=== PATIENT | female | born 1980 | race Caucasian/White ===

== ENCOUNTER → 2021-02-20 03:53 | Outpatient (CLI) | payer OTHER, SELFPAY ==
[2021-02-20 18:30] LABS: SARS-CoV-2 RNA PCR Negative
== END ==
PROVIDERS: PCP Internal Medicine; Visit Provider Internal Medicine Critical Care Medicine
DX: Z01.812 Encounter for preprocedural laboratory examination (principal); Z20.822 Contact with and (suspected) exposure to COVID-19
CPT/HCPCS: C9803; U0003; U0005

== ENCOUNTER → 2021-02-23 07:37 | Outpatient (CLI) | payer OTHER, SELFPAY ==
--- NOTE | 2021-03-20 00:33 | WPDSLEEPSTUD ---
Sleep Study Date of Study: 02/23/21 Ordering Provider: Kings Vieira MD Interpreting Physician: Thelma Mustafa MD Sleep Study Type: Polysomnogram Height: 1.65 m Weight: 104.326 kg Body Mass Index: 38.2 Neck Circumference (inches): 15 [place]: 10 Reason for Sleep Study Hypersomnia Sleep History Misty Lemus is a 41 year old woman with complaints of constant feeling of being tired and exhaustion. She does not wake up feeling short of breath. Occasionally she snores loudly enough that others complain. She rarely has trouble sleeping with a cold. She does not wake up gasping for breath at night. She sweats excessively at night frequently. She occasionally notices her heart pounding irregularly at night. She frequently falls asleep in the day, never involuntarily and never while driving. She does not have loss of muscle tone with strong emotion. She frequently has daytime problems due to excessive sleepiness. She does not feel paralyzed on waking or falling asleep. She occasionally has vivid dream like scenes on waking or falling asleep. She is never afraid to go asleep. She does not have nightmares. She occasionally has racing thoughts, feelings of sadness or depression. She constantly has anxiety. She frequently has muscular tension. She occasionally notices parts of her body jerking. She denies kicking at night, She occasionally has crawling and achy feelings in her legs and occasional leg pain at night. She does not have morning jaw pain. She occasionally clenches her teeth at night. She constantly is bothered by pain in the day, occasionally wakes wih t pain at night. She frequently wakes with feeling stiff in the morning and wakes with sore achy muscles. She has fatigue, memory problems, concentration difficulties. Normal bedtime is between 11:00 pm and 1:00 am. She sometimes falls asleep faster, and at other times it may take longer. She wakes between 1-2 times at night to urinate, get a drink of water, and sometimes uses her phone. She wakes between 7:00 am and 9:00 am. On the weekends, she goes to bed between 1 am and 4 am, and wakes between 11 am and 2 pm. Her sleep is disturbed by pain and sweating. She naps in the afternoon or evening. A short nap is not refreshing. She is drowsy after waking for 3 hours or longer. Habits: quit Tobacco 2 years ago. Caffeine 1-2 per day. No alcohol or recreational drugs. [facility] Past Medical History Medical History Anxiety GERD (gastroesophageal reflux disease) IBS (irritable bowel syndrome) Family History Family History Sibling Asthma Grandparent Asthma Esophageal cancer Hypertension Health problem in family Cerebrovascular accident Father Diabetes mellitus Hypertension Depression with anxiety Mother Cancer of colon with rectum Hypertension Depression with anxiety Daughter Diabetes mellitus Social History Social History Years smoked: 1 Smoking status: Former smoker Tobacco type: e-cigarettes/vaping Alcohol intake: current Alcohol use details: Cocktails Substance use: never Medications Home Medications Medication Instructions Recorded Confirmed Type acyclovir 400 mg tablet 400 mg PO DAILY tablet 01/12/21 01/12/21 History buspirone 10 mg tablet 10 mg PO DAILY tablet 01/12/21 01/12/21 History cetirizine 10 mg tablet 10 mg PO PRN tablet 01/12/21 01/12/21 History ergocalciferol (vitamin D2) 1,250 50,000 unit PO cap 01/12/21 01/12/21 History mcg (50,000 unit) capsule eszopiclone 2 mg tablet 2 mg PO QHS #1 tablet 01/12/21 01/12/21 Rx gabapentin 300 mg capsule 300 mg PO BID cap 01/12/21 01/12/21 History meloxicam 15 mg tablet 15 mg PO PRN tablet 01/12/21 01/12/21 History norethindrone 1 mg-ethinyl 1 tablet PO DAILY tablet 01/12/21 01/12/21 History estradiol 20 mcg (24)-iron 75 mg (4) ta
[2021-03-20 11:29] VITALS: BMI 38.2
== END ==
PROVIDERS: PCP Internal Medicine; Visit Provider Internal Medicine Pulmonary Disease
DX: G47.33 Obstructive sleep apnea (adult) (pediatric) (principal); G47.10 Hypersomnia, unspecified; Z72.821 Inadequate sleep hygiene
CPT/HCPCS: 95810

== ENCOUNTER 2021-03-02 13:47 | Outpatient (CLI) | payer OTHER, SELFPAY ==
--- NOTE | 2021-03-02 16:00 | WPDSIXMINUTE ---
Six Minute Walk Procedure Procedure Performed Pulmonary Stress Test (6 min walk) Six Minute Walk This is a 6 minute walk test. The test was performed and interpreted in accordance with the 2014 ERS/ATS task force guidelines. Findings: The patient's resting room air oxygen saturation measured by pulse oximetry was 97% and her heart rate was 75 bpm. Patient ambulated for 366 meters and oxygen saturation remained 94 to 97%. Heart rate at the end of the study was 107 bpm. The patient did not qualify for supplemental oxygen at rest or with ambulation. There are no prior studies for comparison.
--- NOTE | 2021-03-02 16:01 | P.PCNPFT_ITS ---
PFT Procedure Performed PFT Procedure Performed Spirometry with Pre/Post Bronchodilator Plethysmography (Lung Vol) Diffusing Cap (DLCO) Flow Vol Loop PFT Interpretation This is a pulmonary function test with pre and post-bronchodilator spirometry, plethysmography and diffusing capacity. The test was performed and results interpreted in accordance with the 2019 and 2005 ATS/ERS Task Force guidelines respectively using the Global Lung Function Initiative-2012 reference equations. Patient demonstrated good effort and cooperation. Reproducibility criteria were met. The quality of the pre bronchodilator spirometry maneuver was Grade A and post bronchodilator spirometry maneuver was Grade A. Findings: Spirometry: the contour of the inspiratory and expiratory flow tracing are normal. The pre bronchodilator FVC is 3.06 L, 81% predicted. The pre bronchodilator FEV1 is 2.37 L, 77% predicted. The FEV1: FVC ratio 77%. The post bronchodilator FVC is 3.09 L, representing 1% increase. The post bronchodilator FEV1 is 2.43 L, representing a 3% increase. Plethysmography: The total lung capacity is 4.64 L, 89% predicted. The functional residual capacity is 1.80 L, 62% predicted. The residual volume is 1.22 L, 73% predicted. Diffusing capacity: The absolute diffusion capacity is 19.1, 79% predicted. T he diffusing capacity corrected for alveolar volume is 4.97, 106% predicted. Impression: The spirometry is normal without evidence of an obstructive abnormality. There is no significant improvement after inhaling a single dose of albuterol. The lung volumes are normal. The diffusing capacity is normal. There are no prior studies for comparison
== END 2021-03-02 13:48 | disposition home or self-care (01) ==
PROVIDERS: PCP Internal Medicine; Visit Provider Internal Medicine Pulmonary Disease
DX: R06.00 Dyspnea, unspecified (principal); J40 Bronchitis, not specified as acute or chronic; Z72.0 Tobacco use
CPT/HCPCS: 94060; 94618; 94726; 94729

== ENCOUNTER 2022-01-26 16:48 | Emergency (ER) | payer OTHER, SELFPAY ==
--- NOTE | 2022-01-26 16:51 | ED.URI ---
HPI - URI/Sore Throat General Chief Complaint: Upper Respiratory Infection Stated Complaint: Sinus Congestion/Cough Time Seen by Provider: 01/26/22 16:52 Source: patient and RN notes reviewed History of Present Illness HPI Narrative: Patient is a 42-year-old female who presents the urgent care with complaints of sinus congestion, nasal congestion, rhinorrhea, postnasal drainage and mild cough. Patient states that it started Saturday night/Saturday after she had been working in a lot of dust and then installing a new air conditioner in the attic where she has been sleeping. Patient states she also has had a lot of fatigue. Denies of any wheezing or shortness of breath. Denies of any ill contacts. Denies a fever, nausea or vomiting. No other acute complaints. No acute distress noted. Patient aware of the plan of care. Some parts of this dictation were generated by voice recognition software and may contain typographical and/or grammatical inaccuracies. Related Data Home Medications Medication Instructions Recorded Confirmed acyclovir 400 mg tablet 400 mg PO DAILY 01/12/21 01/26/22 buspirone 10 mg tablet 10 mg PO DAILY 01/12/21 01/26/22 gabapentin 300 mg capsule 300 mg PO BID 01/12/21 01/26/22 norethindrone 1 mg-ethinyl 1 tablet PO DAILY 01/12/21 01/26/22 estradiol 20 mcg (24)-iron 75 mg (4) tablet omeprazole 20 mg capsule,delayed 20 mg PO DAILY 01/12/21 01/26/22 release paroxetine HCl 40 mg tablet 40 mg PO DAILY 01/12/21 01/26/22 Allergies Allergy/AdvReac Type Severity Reaction Status Date / Time No Known Allergies Allergy Verified 01/26/22 17:06 Review of Systems Review of Systems: CONSTITUTIONAL: Denies fever, chills, or sweats. EYES: Denies visual changes, redness, or discharge. ENT: Reports of rhinorrhea, sneezing, head congestion, postnasal drainage CARDIOVASCULAR: Denies chest pain, palpitations, or edema. RESPIRATORY: Reports a mild cough without dyspnea GASTROINTESTINAL: Denies abdominal pain, nausea, vomiting, or diarrhea. GENITOURINARY: Denies dysuria or hematuria. SKIN: Denies rash or itching. MUSCULOSKELETAL: Denies back pain, joint pain, or myalgia. NEUROLOGIC: Denies headache, numbness, or weakness. All other systems reviewed are negative, except as documented in HPI. [facility] Past Medical History Medical History Anxiety GERD (gastroesophageal reflux disease) IBS (irritable bowel syndrome) Family History Family History Sibling Asthma Grandparent Asthma Esophageal cancer Hypertension Health problem in family Cerebrovascular accident Father Diabetes mellitus Hypertension Depression with anxiety Mother Cancer of colon with rectum Hypertension Depression with anxiety Daughter Diabetes mellitus Social History Social History Years smoked: 1 Smoking status: Former smoker Tobacco type: e-cigarettes/vaping Alcohol intake: current Alcohol use details: Cocktails Substance use: never Comments At the time of my signature, I reviewed and agree with the nursing past medical, surgical, social, and family history. There is no relevant family history pertinent to the patient complaint. Exam Narrative: GENERAL: This is a well-nourished, well-developed patient, in no apparent distress. HEAD: normocephalic, atraumatic. EYES: PERRL. Sclera clear/white. Mild bilateral injected conjunctiva. Vision is grossly intact. EARS: External ears normal, auditory canals clear and without drainage, TMs normal without perforation. Hearing grossly intact. NOSE: External nose normal with no obvious nasal discharge. Mild bilateral erythemic nares with copious amounts of clear rhinorrhea THROAT: Mucous membranes moist, mild erythema noted posterior pharynx with moderate postnasal drainage NECK: Neck supple CARDIOVASCULAR: Regular rate and rhyth
[2022-01-26 16:56] VITALS: BP 127/80; PULSE 84; RESP 14; TEMP 36.8; O2SAT 99
== END 2022-01-26 17:27 | disposition home or self-care (01) ==
PROVIDERS: Emergency Provider Nurse Practitioner Family; PCP Internal Medicine
DX: B34.9 Viral infection, unspecified (principal); J30.9 Allergic rhinitis, unspecified; F17.290 Nicotine dependence, other tobacco product, uncomplicated; K21.9 Gastro-esophageal reflux disease without esophagitis; F41.9 Anxiety disorder, unspecified
CPT/HCPCS: 99213; G0463

== ENCOUNTER 2022-07-03 19:43 | Emergency (ER) | payer OTHER, SELFPAY ==
[2022-07-03 19:46] VITALS: BP 141/92; PULSE 85; RESP 20; TEMP 37; O2SAT 97
--- NOTE | 2022-07-03 19:48 | ED.EAR ---
HPI - Ear Problem General Chief complaint: Ear Stated complaint: ears Time Seen by Provider: 07/03/22 19:49 Source: patient and RN notes reviewed Mode of arrival: ambulatory Limitations: no limitations History of Present Illness HPI Narrative: 42-year-old female presents concern for 2 week history of right hand ears, on the last couple of days her ears felt felt clogged. She denies pain, drainage. Reports some sinus congestion and drainage. Reports she takes Zyrtec, denies other intervention MD Complaint: decreased hearing Related Data Home Medications Medication Instructions Recorded Confirmed acyclovir 400 mg tablet 400 mg PO DAILY 01/12/21 07/03/22 buspirone 10 mg tablet 10 mg PO DAILY 01/12/21 07/03/22 gabapentin 300 mg capsule 300 mg PO BID 01/12/21 07/03/22 norethindrone 1 mg-ethinyl 1 tablet PO DAILY 01/12/21 07/03/22 estradiol 20 mcg (24)-iron 75 mg (4) tablet omeprazole 20 mg capsule,delayed 20 mg PO DAILY 01/12/21 07/03/22 release paroxetine HCl 40 mg tablet 40 mg PO DAILY 01/12/21 07/03/22 Allergies Allergy/AdvReac Type Severity Reaction Status Date / Time No Known Allergies Allergy Verified 07/03/22 19:49 Review of Systems Review of Systems: CONSTITUTIONAL: Denies malaise, chills, sweats, or fever. EYES: Denies visual changes, redness, or discharge. ENT: Reports rhinorrhea, congestion. Denies sinus pain, and sore throat. Reports ear fullness bilaterally CARDIOVASCULAR: Denies chest pain, palpitations, or edema. RESPIRATORY: Denies cough. Denies dyspnea. GASTROINTESTINAL: Denies abdominal pain, nausea, vomiting, diarrhea SKIN: Denies rash or itching. MUSCULOSKELETAL: Denies myalgia. NEUROLOGIC: Denies headache. All systems reviewed & are unremarkable except as noted in HPI and below PMFSH Past Medical History Medical History Anxiety GERD (gastroesophageal reflux disease) IBS (irritable bowel syndrome) Family History Family History Sibling Asthma Grandparent Asthma Esophageal cancer Hypertension Health problem in family Cerebrovascular accident Father Diabetes mellitus Hypertension Depression with anxiety Mother Cancer of colon with rectum Hypertension Depression with anxiety Daughter Diabetes mellitus Social History Social History Years smoked: 1 Smoking status: Former smoker Tobacco type: e-cigarettes/vaping Alcohol intake: current Alcohol use details: Cocktails Substance use: never Comments At time of signature, agree with nursing past medical, surgical, social and family history. There is no relevant family history pertinent to the presenting complaint Exam Narrative: GENERAL: Well-appearing, well-nourished, and in no acute distress. HEAD: Normocephalic EYES: PERRLA, conjunctivae clear ENT: Nares clear, turbinates edematous, clear discharge. Mucous membranes moist. TM pearly davey with dull light reflex bilaterally; no tragal tenderness. Oropharynx not erythematous without lesions. Tonsils not enlarged and without exudate, no drooling, no hoarseness, no trismus, uvula midline. NECK: Supple. No lymphadenopathy CHEST: Clear to auscultation, breath sounds equal. No wheezing, rhonchi, rales, or stridor. No respiratory distress, speaks in full sentences. HEART: Regular rate and rhythm. No murmur heard. SKIN: Warm, dry, no rash. NEURO: Alert and oriented x3. PSYCH: Normal mood and affect Course Course Emergency Course: Patient is aware of diagnosis, understands and agrees to treatment plan. Anticipatory guidance given. Patient agrees to follow-up as directed and is aware of reasons to seek care at the emergency department. Portions of this record may have been created with voice recognition software Level of Care: Express Care Visit Vital Signs Vital signs: Reviewed. Medical Decis
== END 2022-07-03 19:57 | disposition home or self-care (01) ==
PROVIDERS: Emergency Provider Nurse Practitioner; PCP Internal Medicine
DX: H93.93 Unspecified disorder of ear, bilateral (principal); H73.893 Other specified disorders of tympanic membrane, bilateral; K21.9 Gastro-esophageal reflux disease without esophagitis; F41.9 Anxiety disorder, unspecified; Z87.891 Personal history of nicotine dependence
CPT/HCPCS: 99213; G0463

== ENCOUNTER 2023-11-09 15:29 | Emergency (ER) | payer OTHER, SELFPAY ==
--- NOTE | 2023-11-09 15:32 | ED.DENTAL ---
HPI - Dental/Oral General Chief complaint: Dental/Oral Stated complaint: right side face pain Time Seen by Provider: 11/09/23 15:38 Source: patient, RN notes reviewed and old records reviewed Mode of arrival: ambulatory Limitations: no limitations History of Present Illness HPI Narrative: 43 year old female who presents to [facility] care with complaints of dental pain to the right upper eye tooth for the past 3 days with some pain radiating up to the side of her nose and some swelling of her right facial cheek. Patient reports that she has been taking some Ibuprofen for her pain with minimal relief. Patient denies any difficulty with her breathing or with swallowing.no trismus or any Bruce angina noted. MD Complaint: tooth pain Location: Tooth # (6) Onset (ago): day(s) (3) Duration: constant Severity: moderate Severity scale (1-10): 9 Treatment prior to arrival: other (Ibuprofen) Related Data Home Medications Medication Instructions Recorded Confirmed acyclovir 400 mg tablet 400 mg PO DAILY 01/12/21 07/03/22 buspirone 10 mg tablet 10 mg PO DAILY 01/12/21 07/03/22 gabapentin 300 mg capsule 300 mg PO BID 01/12/21 07/03/22 norethindrone 1 mg-ethinyl 1 tablet PO DAILY 01/12/21 07/03/22 estradiol 20 mcg (24)-iron 75 mg (4) tablet omeprazole 20 mg capsule,delayed 20 mg PO DAILY 01/12/21 07/03/22 release paroxetine HCl 40 mg tablet 40 mg PO DAILY 01/12/21 07/03/22 Allergies Allergy/AdvReac Type Severity Reaction Status Date / Time No Known Allergies Allergy Verified 07/03/22 19:49 Review of Systems Review of Systems: CONSTITUTIONAL: Denies fever, chills, or sweats. ENT: Denies rhinorrhea, congestion, sore throat, or otalgia. Reports dental pain to right upper eye tooth#6 CARDIOVASCULAR: Denies chest pain, palpitations, or edema. RESPIRATORY: Denies cough or dyspnea. SKIN: Denies rash or itching. MUSCULOSKELETAL: Denies myalgia. NEUROLOGIC: Denies headache All systems reviewed & are unremarkable except as noted in HPI and below [facility] Past Medical History Medical History (Updated 11/10/23 @ 00:00 by Background Daemon) Anxiety Fibromyalgia GERD (gastroesophageal reflux disease) IBS (irritable bowel syndrome) Surgical History Surgical History (Updated 11/11/23 @ 10:51 by Suly Whalen NP) Hx of cholecystectomy Family History Family History Sibling Asthma Grandparent Asthma Esophageal cancer Hypertension Health problem in family Cerebrovascular accident Father Diabetes mellitus Hypertension Depression with anxiety Mother Cancer of colon with rectum Hypertension Depression with anxiety Daughter Diabetes mellitus Social History Social History (Reviewed 01/12/21 @ 15:43 by Joana Talley, [facility]) Years smoked: 1 Smoking status: Former smoker Tobacco type: e-cigarettes/vaping Alcohol intake: current Alcohol use details: Cocktails Substance use: never Living arrangements: with family Comments At time of signature, agree with nursing past medical, surgical, social and family history. There is no relevant family history pertinent to the presenting complaint Exam Narrative: GENERAL: Well-appearing, well-nourished, and in no acute distress. HEAD: Normocephalic, atraumatic. EYES: PERRLA and EOMI. ENT: Nares clear, no rhinorrhea or epistaxis. Mucous membranes moist. redness and swelling of gum around right upper eye tooth, no trismus or any Bruce angina, mild swelling to right cheek NECK: Supple. no lymphadenopathy CHEST: Clear to auscultation. No respiratory distress.SAO2 100% on room air HEART: Regular rate and rhythm. No murmur heard. Normal peripheral pulses. SKIN: Warm, dry, no rash. NEURO: No focal deficits. Alert and oriented x3. Course Course Emergency Course: Patient is aware of diagnosis, understands and agrees to treatment plan. Anticipatory guidance given. Patient agrees to follow-up
[2023-11-09 15:38] VITALS: BP 121/85; PULSE 76; RESP 16; TEMP 36.9; O2SAT 100
== END 2023-11-09 16:08 | disposition home or self-care (01) ==
PROVIDERS: Emergency Provider Registered Nurse; PCP Internal Medicine
DX: K04.7 Periapical abscess without sinus (principal); F17.290 Nicotine dependence, other tobacco product, uncomplicated; F41.9 Anxiety disorder, unspecified; M79.7 Fibromyalgia; K21.9 Gastro-esophageal reflux disease without esophagitis
CPT/HCPCS: 99213; G0463

== ENCOUNTER 2024-06-29 17:47 | Emergency (ER) | payer OTHER, SELFPAY ==
[2024-06-29 17:54] VITALS: BP 131/77; PULSE 66; RESP 16; TEMP 36.6; O2SAT 100
--- NOTE | 2024-06-29 18:33 | ED_ITS ---
HPI - URI/Sore Throat General Chief Complaint: Upper Respiratory Infection Stated Complaint: cough/hoarse voice Time Seen by Provider: 06/29/24 18:06 Source: patient and RN notes reviewed Mode of arrival: ambulatory Limitations: no limitations History of Present Illness HPI Narrative: Patient presents today complaining of mild hoarseness and cough since this morning. Denies fever or sore throat, or any additional symptoms. She has tried some allergy medication this morning without relief. Related Data Home Medications ?Medication ?Instructions ?Recorded ?Confirmed ?Last Taken ?Type acyclovir 400 mg tablet 400 mg PO DAILY 01/12/21 07/03/22 Unknown History buspirone 10 mg tablet 10 mg PO DAILY 01/12/21 07/03/22 Unknown History gabapentin 300 mg capsule 300 mg PO BID 01/12/21 07/03/22 Unknown History norethindrone 1 mg-ethinyl 1 tablet PO DAILY 01/12/21 07/03/22 Unknown History estradiol 20 mcg (24)-iron 75 mg (4) tablet omeprazole 20 mg capsule,delayed 20 mg PO DAILY 01/12/21 07/03/22 Unknown History release paroxetine HCl 40 mg tablet 40 mg PO DAILY 01/12/21 07/03/22 Unknown History Allergies Allergy/AdvReac Type Severity Reaction Status Date / Time No Known Allergies Allergy Verified 06/29/24 17:57 Review of Systems Review of Systems: CONSTITUTIONAL: Denies body aches, fever, chills, or sweats. EYES: Denies visual changes, redness, or discharge. ENT: Denies rhinorrhea, congestion, sore throat, or otalgia.+ hoarseness CARDIOVASCULAR: Denies chest pain, palpitations, or edema. RESPIRATORY: Denies dyspnea.+ cough GASTROINTESTINAL: Denies abdominal pain, nausea, vomiting, or diarrhea. GENITOURINARY: Denies dysuria or hematuria. SKIN: Denies rash, itching, or wounds. MUSCULOSKELETAL: Denies back pain, joint pain, or myalgia. NEUROLOGIC: Denies headache, numbness, tingling, or weakness. PSYCH: Denies depression or anxiety. [facility] Past Medical History Medical History Fibromyalgia IBS (irritable bowel syndrome) GERD (gastroesophageal reflux disease) Anxiety Surgical History Surgical History Hx of cholecystectomy Family History Family History Sibling Asthma Grandparent Asthma Esophageal cancer Hypertension Health problem in family Cerebrovascular accident Father Diabetes mellitus Hypertension Depression with anxiety Mother Cancer of colon with rectum Hypertension Depression with anxiety Daughter Diabetes mellitus Social History Social History Years smoked: 1 Smoking status: Former smoker Tobacco type: e-cigarettes/vaping Alcohol intake: current Alcohol use details: Cocktails Substance use: never Living arrangements: with family Comments At time of signature, I have reviewed and agree with nursing past medical, surgical, social and family history unless otherwise noted. Please see nursing chart for further information. There is no relevant family history pertinent to the presenting complaint Exam Narrative: GENERAL: Well-appearing, well-nourished, and in no acute distress. HEAD: Normocephalic, atraumatic. EYES: EOMI. No redness or drainage. Conjunctivae normal. ENT: Mucous membranes pink and moist. Nares clear. No rhinorrhea. TMs normal bilaterally. Throat normal. Uvula midline. Voice does not seem hoarse. NECK: Normal AROM. Supple. No lymphadenopathy. CHEST: No respiratory distress. Clear to auscultation. HEART: Regular rate and rhythm. No murmur appreciated. EXTREMITIES: Normal range of motion. No edema. SKIN: Warm, dry, no rash. Capillary refill normal. Normal skin turgor. NEURO: No focal deficits. Alert and oriented x3. Gait steady. PSYCH: Normal affect. No signs of depression or anxiety. Course Course Level of Care: Express Care Visit Vital Signs Vital signs: Vital Signs Temperature 97.8 F 06/29/24 17:54 Pulse Rate 66 06/29/24 17:54 Respiratory Rate 16 06/29/24 17:54 Blood Pressure 131/77 06/29/24 17:54 Pulse Oximetry 100 06/29/24 17:54 Oxygen Delivery Room Air 06/29/24 17:54 Temperature 97.8 F 06/29/24 17:54 Pulse Rate 66 06/29/24 17:54 Respiratory Rate 16 06/29/24 17:54 Blood Pressure 131/77 06/29/24 17:54 Pulse Oximetry 100 06/29/24 17:54 Oxygen Delivery Room Air 06/29/24 17:54 Reviewed MDM - URI/Sore Throat MDM Narrative Medical decision making narrative: Patient would like to be tested for influenza and COVID-19. Testing negative. Symptoms likely viral in etiology. Discussed [id number] medication use and duration of illness. No prescription medications indicated at this time. Anticipatory guidance given. Differential Diagnosis Differential diagnosis: Likely upper respiratory infection and viral infection Lab Data Attestation: I reviewed the patient's lab results. Lab results narrative: Influenza and COVID negative. Critical Care Time Critical Care Time Critical Care Time: No Discharge Plan Discharge Clinical Impression: Upper respiratory infection Qualifiers: URI type: unspecified URI Qualified Code(s): J06.9 - Acute upper respiratory infection, unspecified Patient Disposition: Home, Self-Care Condition: Stable Instructions: Upper Respiratory Infection (DC) Additional Instructions: Your COVID-19 and influenza swabs are negative today. Your symptoms are likely due to a viral illness, which is not treated with antibiotics. Virus symptoms can last for up to 7-10days. Take Tylenol or ibuprofen for pain or fever. Rest and stay hydrated. Follow up with your PCP in 7-10 days if symptoms are not improving. Go to the ER immediately if you develop shortness of breath, difficulty swallowing, or any other concerning symptoms. Your blood pressure was elevated above 120/80 today at Urgent Care. This puts you above the threshold for follow up. Please schedule a followup visit with your personal physician as soon as possible, for further evaluation and treatment. Even blood pressure exceeding 120/80 may indicate pre-hypertension. Patient Language: [place] Prescriptions: No Action norethindrone-e.estradiol-iron 1 mg-20 mcg (24)/75 mg (4) tablet 1 tablet PO DAILY paroxetine HCl 40 mg tablet 40 mg PO DAILY omeprazole 20 mg capsule,delayed release(DR/EC) 20 mg PO DAILY buspirone 10 mg tablet 10 mg PO DAILY acyclovir 400 mg tablet 400 mg PO DAILY gabapentin 300 mg capsule 300 mg PO BID Follow-up/Referrals: Patricia,MD Ashlyn [Primary Care Provider] - Time of Disposition: 18:34
[2024-06-29 18:35] LABS: EDCOVIDSCREEN Negative (Negative); EDINFLUASCREEN Negative (Negative); EDINFLUBSCREEN Negative (Negative)
== END 2024-06-29 18:39 | disposition home or self-care (01) ==
PROVIDERS: Emergency Provider Nurse Practitioner; PCP Internal Medicine
DX: J06.9 Acute upper respiratory infection, unspecified (principal); Z87.891 Personal history of nicotine dependence; Z20.822 Contact with and (suspected) exposure to COVID-19
CPT/HCPCS: 87426; 87804; 99212; G0463